=== PATIENT | male | born 1985 | race African-American/Black ===

== ENCOUNTER 2017-11-27 12:46 | Inpatient (IN) | payer OTHER ==
[2017-11-27] VITALS (12 sets, daily range): BP systolic 103–145; BP diastolic 55–87
[~2017-11-27] VITALS: Ht 195.6 cm; Wt 130.7 kg
[~2017-11-27 12:46] MED LIST: HYDROCHLOROTH12.5 M1 PO; NORCO 5-325 TA1 EACH PO; NORVASC5 MG PO; PENICILLIN V P500 MG PO; PEPCID20 MG PO; PRINIVIL40 MG PO; TRINATE TABLET1 TAB PO; VITAMIN B-1100 M1 PO
[2017-11-27 13:41] LABS: ABSOLUTE NEUTROPHILS 3.9 thou/uL (1.4-8.2); BASOPHILS 0.7 % (0.0-2.0); EOSINOPHILS 0.7 % (0.0-3.0); HEMATOCRIT 47.5 % (42.0-52.0); HEMOGLOBIN 16.6 gm/dL (14.0-18.0); MCH 31.9 pg (26.0-34.0); MCV 91.4 fL (80.0-100.0); MONOCYTES 6.3 % (1.0-8.0); PLATELET COUNT 198 thou/uL (150-400); POLYS 70.3 % (36.0-66.0); RBC 5.19 mil/uL (4.50-6.00); RDW 13.4 % (10.5-14.5); WBC 5.5 thou/uL (4.0-11.0)
[2017-11-27 13:44] LABS: URINE BILIRUBIN NEGATIVE (Negative); URINE BLOOD NEGATIVE (Negative); URINE CLARITY CLEAR; URINE GLUCOSE-RANDOM* 3+ (Negative); URINE KETONES 1+ (Negative); URINE LEUKOCYTES-REFLEX NEGATIVE (Negative); URINE NITRITE-REFLEX NEGATIVE (Negative); URINE PROTEIN (DIPSTICK) NEGATIVE (Negative); URINE SPECIFIC GRAVITY <= 1.005 (1.005-1.035); URINE UROBILINOGEN 0.2 E.U./dl (0.2-1.0)
[2017-11-27 13:45] LABS: URINE COLOR COLORLESS
[2017-11-27 13:51] LABS: CALCIUM 9.7 mg/dL (8.5-10.1); CREATININE 1.2 mg/dL (0.7-1.3); POTASSIUM 4.5 mmol/L (3.5-5.1)
[2017-11-27 15:17] LABS: ALBUMIN 3.7 g/dL (3.4-5.0); TOTAL BILIRUBIN 0.5 mg/dL (<0.1-1.0); TOTAL PROTEIN 8.1 g/dL (6.4-8.2)
[2017-11-27 15:44] LABS: DIRECT BILIRUBIN 0.1 mg/dL (<0.1-0.3)
[2017-11-27 19:46] LABS: CALCIUM 8.8 mg/dL (8.5-10.1); CREATININE 0.8 mg/dL (0.7-1.3)
[2017-11-27 19:47] LABS: POTASSIUM 3.3 mmol/L (3.5-5.1)
[2017-11-27 19:51] LABS: CHOLESTEROL 290 mg/dL (<200); HDL CHOLESTEROL 29 mg/dL (>40); TRIGLYCERIDE 715 mg/dL (<150); VLDL 143 mg/dL (<40)
[2017-11-27 19:54] LABS: SERUM ASSESSMENT Clear
[2017-11-28] VITALS (17 sets, daily range): BP systolic 100–143; BP diastolic 57–108
[2017-11-28 02:09] LABS: ESTIMATED AVERAGE GLUCOSE < 74 mg/dL (()); GLYCOHEMOGLOBIN (HGB A1C) < 4.2 % (4.8-5.6)
[2017-11-28 04:56] LABS: CREATININE 0.7 mg/dL (0.7-1.3); PHOSPHORUS 3.8 mg/dL (2.5-4.9); POTASSIUM 3.3 mmol/L (3.5-5.1)
[2017-11-29] VITALS: BP 119/75
[2017-11-29 03:54] VITALS: BP 127/73
[2017-11-29 04:59] LABS: HEMATOCRIT 41.9 % (42.0-52.0); MCH 30.7 pg (26.0-34.0); MCV 90.5 fL (80.0-100.0); RBC 4.63 mil/uL (4.50-6.00); RDW 13.3 % (10.5-14.5); WBC 5.8 thou/uL (4.0-11.0)
[2017-11-29 05:01] LABS: HEMOGLOBIN 14.2 gm/dL (14.0-18.0)
[2017-11-29 05:13] LABS: ALBUMIN 2.9 g/dL (3.4-5.0); CALCIUM 8.1 mg/dL (8.5-10.1); CREATININE 0.7 mg/dL (0.7-1.3); MAGNESIUM 1.9 mg/dL (1.8-2.4); POTASSIUM 3.8 mmol/L (3.5-5.1); TOTAL BILIRUBIN 0.4 mg/dL (<0.1-1.0); TOTAL PROTEIN 5.9 g/dL (6.4-8.2)
[2017-11-29 06:15] VITALS: BP 117/82
[2017-11-29 07:14] VITALS: BP 109/69
[2017-11-29] MEDS ORDERED: LIPITOR 20 MG T20 M1 PO (14:17)
[2017-11-29] MEDS ORDERED: FIASP 100100 UNIT/2 SUBQ (14:21)
[2017-11-29] MEDS ORDERED: LANTUS SUBQ (14:22)
[2017-11-29] MEDS ORDERED: INSULIN SYRING1 EA10 SUBQ (14:23)
[2017-11-29] MEDS ORDERED: TEST STRIPS1 EACH SUBQ (14:33)
[2017-11-29] MEDS ORDERED: ACCU-CHEK FAST1 EACH SUBQ (14:37)
[2017-11-29 15:52] VITALS: BP 109/69
== END 2017-11-29 16:52 | disposition home or self-care (01) | DRG 638 ==
LOC: ER 12:46 → ICU 14:32 → EROBS 14:32 → ICU 15:42 → 3W 11-29 06:08 → ICU 11-29 06:08 → ENTRNSPT 11-29 16:36 → 3W 11-29 16:52
PROVIDERS: Emergency Medicine; Internal Medicine
DX: E11.00 Type 2 diabetes mellitus with hyperosmolarity without nonketotic hyperglycemic-hyperosmolar coma (NKHHC) (principal); E87.1 Hypo-osmolality and hyponatremia; I10 Essential (primary) hypertension; J45.909 Unspecified asthma, uncomplicated; E11.65 Type 2 diabetes mellitus with hyperglycemia; E86.0 Dehydration; E78.5 Hyperlipidemia, unspecified; E78.1 Pure hyperglyceridemia; Z87.891 Personal history of nicotine dependence; Z82.49 Family history of ischemic heart disease and other diseases of the circulatory system; Z79.899 Other long term (current) drug therapy
CPT/HCPCS: 10078

== ENCOUNTER 2019-12-04 11:59 | Emergency (ER) | payer OTHER ==
[~2019-12-04] VITALS: Ht 195.6 cm; Wt 154.2 kg
[~2019-12-04 11:59] MED LIST changes: +ACCU-CHEK FAST1 EACH SUBQ; +FIASP 100100 UNIT/2 SUBQ; +INSULIN SYRING1 EA10 SUBQ; +LANTUS SUBQ; +LIPITOR 20 MG T20 M1 PO; +TEST STRIPS1 EACH SUBQ
[2019-12-04 12:32] LABS: URINE BILIRUBIN NEGATIVE (Negative); URINE BLOOD TRACE (Negative); URINE CLARITY CLEAR; URINE COLOR YELLOW; URINE GLUCOSE-RANDOM* 3+ (Negative); URINE KETONES NEGATIVE (Negative); URINE LEUKOCYTES-REFLEX NEGATIVE (Negative); URINE NITRITE-REFLEX NEGATIVE (Negative); URINE PROTEIN (DIPSTICK) 1+ (Negative); URINE SPECIFIC GRAVITY 1.015 (1.005-1.035)
[2019-12-04 12:40] LABS: SQUAMOUS 0-3 Few /LPF (0-3)
[2019-12-04 12:40] LABS: ABSOLUTE NEUTROPHILS 2.7 thou/uL (1.4-8.2); BASOPHILS 0.7 % (0.0-2.0); EOSINOPHILS 1.3 % (0.0-3.0); HEMOGLOBIN 16.6 gm/dL (14.0-18.0); LYMPHOCYTES 38.2 % (24.0-44.0); MCH 31.3 pg (26.0-34.0); MCHC 35.2 g/dL (28.0-37.0); MCV 88.9 fL (80.0-100.0); MONOCYTES 5.5 % (1.0-8.0); PLATELET COUNT 162 thou/uL (150-400); POLYS 54.3 % (36.0-66.0); RBC 5.29 mil/uL (4.50-6.00); RDW 13.3 % (10.5-14.5); WBC 5.1 thou/uL (4.0-11.0)
[2019-12-04 12:41] LABS: BACTERIA-REFLEX 1-9 Few /HPF (None Seen); CASTS None Seen /LPF (None Seen); CRYSTALS None Seen /LPF (None Seen); MUCUS 0-3 Light strn/LPF (None Seen); URINE RBC 0-2 Rare /HPF (0-2); URINE WBC-REFLEX 0-5 Rare /HPF (0-5)
[2019-12-04 12:48] LABS: CALCIUM 9.2 mg/dL (8.5-10.1); CREATININE 0.9 mg/dL (0.7-1.3)
[2019-12-04 12:53] LABS: ALBUMIN 3.9 g/dL (3.4-5.0); TOTAL BILIRUBIN 0.4 mg/dL (0.2-1.0); TOTAL PROTEIN 7.8 g/dL (6.4-8.2)
[2019-12-04] MEDS ORDERED: METFORMIN HCL500 M3 PO (13:36)
[2019-12-04 13:38] VITALS: BP 144/81
== END 2019-12-04 13:48 | disposition home or self-care (01) ==
LOC: ER 11:59
PROVIDERS: Nurse Practitioner Family
DX: E11.65 Type 2 diabetes mellitus with hyperglycemia (principal); F41.0 Panic disorder [episodic paroxysmal anxiety]; J45.909 Unspecified asthma, uncomplicated; I10 Essential (primary) hypertension; Z98.890 Other specified postprocedural states; Z79.4 Long term (current) use of insulin; Z79.899 Other long term (current) drug therapy; Z87.891 Personal history of nicotine dependence

== ENCOUNTER 2020-09-07 07:46 | Emergency (ER) | payer OTHER ==
[~2020-09-07] VITALS: Ht 190.5 cm; Wt 113.4 kg
[~2020-09-07 07:46] MED LIST changes: +METFORMIN HCL500 M3 PO
[2020-09-07 08:45] VITALS: BP 148/99
[2020-09-07] MEDS ORDERED: TESSALON PERLE100 MG PO (09:02)
[2020-09-07] MEDS ORDERED: PREDNISONE 20 M20 MG PO (09:02)
[2020-09-07] MEDS ORDERED: MUCINEX600 MG PO (09:02)
== END 2020-09-07 09:30 | disposition home or self-care (01) ==
LOC: ER 07:46
DX: J06.9 Acute upper respiratory infection, unspecified (principal); I10 Essential (primary) hypertension; E11.9 Type 2 diabetes mellitus without complications; J45.909 Unspecified asthma, uncomplicated; Z79.4 Long term (current) use of insulin; Z79.899 Other long term (current) drug therapy; Z87.891 Personal history of nicotine dependence; Z20.822 Contact with and (suspected) exposure to COVID-19

== ENCOUNTER 2021-02-24 17:17 | Emergency (ER) | payer OTHER ==
[~2021-02-24] VITALS: Ht 193 cm; Wt 144.2 kg
[~2021-02-24 17:17] MED LIST changes: +MUCINEX600 MG PO; +PREDNISONE 20 M20 MG PO; +TESSALON PERLE100 MG PO
[2021-02-24 17:43] VITALS: BP 142/93
[2021-02-24] MEDS ORDERED: HYDROCODON-ACE1 EAC7 PO (18:43)
== END 2021-02-24 19:17 | disposition home or self-care (01) ==
LOC: ER 17:17
DX: S89.92XA Unspecified injury of left lower leg, initial encounter (principal); F17.210 Nicotine dependence, cigarettes, uncomplicated; I10 Essential (primary) hypertension; E11.9 Type 2 diabetes mellitus without complications; Z98.890 Other specified postprocedural states; W22.8XXA Striking against or struck by other objects, initial encounter; Y93.89 Activity, other specified; Y92.89 Other specified places as the place of occurrence of the external cause; Y99.8 Other external cause status

== ENCOUNTER 2021-07-06 16:33 | Emergency (ER) | payer OTHER ==
[~2021-07-06] VITALS: Ht 193 cm; Wt 144.2 kg
[~2021-07-06 16:33] MED LIST changes: +HYDROCODON-ACE1 EAC7 PO
[2021-07-06 16:35] VITALS: BP 157/93
--- NOTE | 2021-07-07 08:05 | EKG ---
[place] [address] [facility] [place] [address] ELECTROCARDIOGRAM REPORT Name: BRUCE MCNULTY Room [facility]: [id number] Admission: 07/06/21 Attend Phys: Discharge: 07/06/21 Date of : 81 Report #: [id number] [facility] ED Test Date: 2021-07-06 Test Time: 16:46:06 Pat Name: BRUCE MCNULTY Department: Room: Gender: Vamp Presser: ANTONIETA : 1985 Requested By: Glen Vicente Order Number: [id number] MD: Epifanio Floyd Measurements Intervals [place] Rate: 91 P: 37 W[place]: 151 QRS: 15 QRSD: 90 T: 16 QT: 380 QTc: 468 Interpretive Statements Sinus rhythm Baseline wander in lead(s) V1 Compared to ECG 01/24/2015 05:50:15 Left ventricular hypertrophy no longer present Electronically Signed On 07-07-2021 8:05:39 [employer] by Epifanio Floyd [email or web address] <ELECTRONICALLY SIGNED> By: Epifanio Floyd MD, [facility] 07/07/21 [id number] Epifanio Floyd MD, FACC /EPI
== END 2021-07-06 17:52 | disposition home or self-care (01) ==
LOC: ER 16:33
DX: R00.0 Tachycardia, unspecified (principal); I10 Essential (primary) hypertension; J45.909 Unspecified asthma, uncomplicated; E11.9 Type 2 diabetes mellitus without complications; Z79.899 Other long term (current) drug therapy; Z87.891 Personal history of nicotine dependence